=== PATIENT | male | born 1985 | race Hispanic/Latino ===

== ENCOUNTER 2023-08-28 14:04 | Emergency (ER) | payer SELFPAY, OTHER | END 2023-08-28 17:27 | disposition home or self-care (01) | LOC: ERS 14:04 | DX: S06.9X9A Unspecified intracranial injury with loss of consciousness of unspecified duration, initial encounter (principal); R07.81 Pleurodynia; R51.9 Headache, unspecified; V49.9XXA Car occupant (driver) (passenger) injured in unspecified traffic accident, initial encounter; W22.12XA Striking against or struck by front passenger side automobile airbag, initial encounter | CPT/HCPCS: 71045; 93005 ==